=== PATIENT | female | born 1990 | race Caucasian/White ===

== ENCOUNTER 2022-02-03 16:07 | Emergency (ER) | payer OTHER | END 2022-02-03 17:00 | LOC: JP.ED 16:07 | DX: T19.2XXA Foreign body in vulva and vagina, initial encounter (principal) | CPT/HCPCS: 72170; 99282; 99283 ==

== ENCOUNTER 2023-01-03 11:44 | Emergency (ER) | payer MEDICAID, OTHER ==
[2023-01-03] MEDS ORDERED: Iopamidol 612 MG/ML 100 ML Bottle IV PRN (12:46)
[2023-01-03] MEDS ORDERED: Sodium Chloride 0.9% 50 ML IV ONE (12:46)
[2023-01-03] MEDS ORDERED: Sodium Chloride 0.9% 10 ML Syringe FLUSH PRN (12:46)
[2023-01-03 13:15] LABS: ESTIMATED GFR 100 mL/min (>60)
== END 2023-01-03 13:57 ==
LOC: JP.ED 11:44
DX: R40.0 Somnolence (principal)
CPT/HCPCS: 36415; 74177; 74177-26; 80053; 80305-QW; 81025; 83605; 84484; 85025; 93005; 99285